=== PATIENT | female | born 1995 | race Two or more races ===

== ENCOUNTER → 2017-07-03 | Outpatient (CLI) | payer OTHER ==
--- NOTE | 2017-07-03 16:53 | US ---
HISTORY: 22-year-old female for age assessment. Study: OB ultrasound greater than 14 weeks Comparison: None. Technique: Multiple grayscale and color flow Doppler images of the pelvis were obtained with focused evaluation of the fetus. Findings: A viable single intrauterine is identified with heart tones of 140 beats per minute. A cephalic presentation is observed with a posterior and fundal placenta. Normal amniotic fluid vol ume is observed. Evaluation of the anatomy including the stomach, kidneys, urinary bladder, and four-chamber heart are unremarkable. The extremities and spine are normal in their sonographic appe arance. A three-vessel cord is observed. No intracranial abnormality can be identified. Value Estimated Gestational Age BPD 6.7 cm 27 weeks 1 day HC 25 cm 27 weeks 0 days AC 23 cm 27 weeks 1 day FL 5.1 cm 27 weeks 3 days Estimated weight 1046 g, 42nd percentile. IMPRESSION: A viable single intrauterine with an average ultrasound age of 27 weeks 1 day correspond to an estimated date of delivery of 10/01/2017. No anatomical abnormalities can be identified. Reported By:
== END ==
LOC: RAD 15:29
PROVIDERS: ATTEND Obstetrics & Gynecology Obstetrics
DX: Z34.92 Encounter for supervision of normal pregnancy, unspecified, second trimester (principal); Z3A.27 27 weeks gestation of pregnancy
CPT/HCPCS: 76805

== ENCOUNTER 2017-09-25 06:21 | Inpatient (IN) ==
[2017-09-25] MEDS ORDERED: LR 1000 ML IV 1,000 ML IV ONE ×2 (06:36→07:16)
[2017-09-25] MEDS ORDERED: ANCEF 1 GRAM IV PREMIX* 1 G/50 ML BAG IV ONE (06:37)
[2017-09-25 07:11] LABS: BASOPHILS % (AUTO) 0.5 % (0.2-1.0); EOSINOPHILS % (AUTO) 0.5 % (0.9-2.9); HEMATOCRIT 39.4 % (36.0-47.0); HEMOGLOBIN 13.6 g/dL (12.0-16.0); LYMPHOCYTES # (AUTO) 2.7 X10^3/uL (1.3-2.9); LYMPHOCYTES % (AUTO) 31.1 % (21.0-51.0); MEAN CORPUSCULAR HEMOGLOBIN 32.9 pg (27.0-34.0); MEAN CORPUSCULAR HGB CONC 34.4 g/dL (33.0-35.0); MEAN CORPUSCULAR VOLUME 95.7 fL (80.0-100.0); MEAN PLATELET VOLUME 9.6 fL (7.4-11.0); MONOCYTES # (AUTO) 0.6 x10^3/uL (0.3-0.8); MONOCYTES % (AUTO) 6.6 % (0.0-13.0); NEUTROPHILS # (AUTO) 5.4 x10^3/uL (2.2-4.8); NEUTROPHILS % (AUTO) 61.3 % (42.0-75.0); PLATELET COUNT 186 X10^3/uL (150.0-450.0); RED BLOOD COUNT 4.12 X10^6/uL (3.5-5.4); RED CELL DISTRIBUTION WIDTH 14.4 % (11.6-16.5); WHITE BLOOD COUNT 8.8 X10^3/uL (3.6-10.0)
[2017-09-25] MEDS ORDERED: D5 1/2 NS 1L W PITOCIN 20 UNITS/L 20 UNITS/1,000 ML BAG IV ONE (07:16)
[2017-09-25] MEDS ORDERED: DURAMORPH ONE (07:16)
[2017-09-25 07:23] LABS: ALANINE AMINOTRANSFERASE 15 Units/L (12-78); ALBUMIN 2.6 g/dL (3.4-5.0); ALKALINE PHOSPHATASE 154 Units/L (46-116); ASPARTATE AMINO TRANSFERASE 13 Units/L (15-37); BLOOD UREA NITROGEN 6 mg/dL (7-18); CALCIUM 8.8 mg/dL (8.5-10.1); CARBON DIOXIDE 21.3 mmol/L (21-32); CHLORIDE 107 mmol/L (98-107); COR CA(FOR HYPOALB) 9.9 mg/dL (8.5-10.1); CREATININE 0.54 mg/dL (0.55-1.02); SODIUM 140 mmol/L (136-145); TOTAL PROTEIN 6.6 g/dL (6.4-8.2); eGFR NON BLACK RACES > 60 (>60)
[2017-09-25] MEDS ORDERED: BENADRYL INJ 50 MG VIAL IVP PRN (08:54)
[2017-09-25] MEDS ORDERED: REGLAN INJ 10 MG VIAL IVP PRN ×2 (08:54→09:12)
[2017-09-25] MEDS ORDERED: PHENERGAN INJ 25 MG IVP PRN (08:54)
[2017-09-25] MEDS ORDERED: ZOFRAN INJ 4 MG VIAL IVP PRN (08:54)
[2017-09-25 08:59] LABS: BILIRUBIN,URINE NEGATIVE (NEGATIVE); BLOOD/HEMOGLOBIN,URINE NEGATIVE (NEGATIVE); GLUCOSE, URINE NEGATIVE (NEGATIVE); KETONES,URINE NEGATIVE (NEGATIVE); LEUKOCYTE ESTERASE ,URINE NEGATIVE (NEGATIVE); NITRITES,URINE NEGATIVE (NEGATIVE); PROTEIN,URINE NEGATIVE (NEGATIVE); UROBILINOGEN,URINE NORMAL (NORMAL)
[2017-09-25 09:02] LABS: APPEARANCE,URINE CLEAR (CLEAR); COLOR,URINE PALE YELLOW (YELLOW)
[2017-09-25] MEDS ORDERED: NARCAN INJ IVP PRN ×2 (09:12)
[2017-09-25] MEDS ORDERED: AMBIEN PO PRN (09:12)
[2017-09-25] MEDS ORDERED: MILK OF MAGNESIA PO PRN (09:12)
[2017-09-25] MEDS ORDERED: TORADOL 30 MG VIAL IVP PRN (09:12)
[2017-09-25] MEDS: BENADRYL INJ 50 MG VIAL IVP PRN (10:04)
[2017-09-25] MEDS: ZOFRAN INJ 4 MG VIAL IVP PRN ×2 (10:04→17:06)
[2017-09-25] MEDS: PRENATAL PLUS PO SCH (11:08)
[2017-09-25] MEDS: ZANTAC PO SCH ×2 (11:08→20:02)
[2017-09-25] MEDS ORDERED: XYLOCAINE 2 % (PLAIN) ONE (15:25)
[2017-09-25] MEDS ORDERED: VERSED ONE (15:25)
[2017-09-25] MEDS ORDERED: ZOFRAN INJ 4 MG VIAL ONE (15:25)
[2017-09-25] MEDS ORDERED: PITOCIN ONE (15:25)
[2017-09-25] MEDS ORDERED: QUELICIN (OR ANECTINE) ONE (15:25)
[2017-09-25] MEDS ORDERED: DIPRIVAN VIAL ONE (15:25)
[2017-09-25] MEDS ORDERED: MARCAINE SPINAL ONE (15:25)
[2017-09-25] MEDS ORDERED: SUPRANE IN ONE (15:25)
[2017-09-25] MEDS: MOTRIN TAB 800 MG PO PRN (19:11)
[2017-09-26 05:34] LABS: HEMATOCRIT 35.1 % (36.0-47.0); HEMOGLOBIN 12.1 g/dL (12.0-16.0)
[2017-09-26] MEDS: PRENATAL PLUS PO SCH (10:00)
[2017-09-26] MEDS: ZANTAC PO SCH ×2 (10:00→20:41)
[2017-09-26] MEDS: BENADRYL INJ 50 MG VIAL IVP PRN (11:45)
[2017-09-26] MEDS: MOTRIN TAB 800 MG PO PRN (14:38)
[2017-09-27] MEDS: PRENATAL PLUS PO SCH (08:45)
[2017-09-27] MEDS: ZANTAC PO SCH (08:45)
[2017-09-27 10:43] VITALS: BP 128/78
== END 2017-09-27 11:50 | disposition home or self-care (01) | DRG 766 ==
LOC: LD 06:21 → MED/SURG 09:02
PROVIDERS: ADMIT Obstetrics & Gynecology Obstetrics; ATTEND Obstetrics & Gynecology Obstetrics
DX: O34.211 Maternal care for low transverse scar from previous cesarean delivery; Z3A.39 39 weeks gestation of pregnancy; O99.52 Diseases of the respiratory system complicating childbirth; Z37.0 Single live birth; N85.8 Other specified noninflammatory disorders of uterus; O09.33 Supervision of pregnancy with insufficient antenatal care, third trimester
CPT/HCPCS: 36415; 74176; 80053; 81003; 85014; 85018; 85025; 86592; 86850; 86900; 86901; 96372; 99283; A4222; S0197; J0330; J0690; J1200; J1885; J2250; J2405; J2590; J2704; J3490; J7120

== ENCOUNTER 2021-10-11 06:41 | Inpatient (IN) ==
[2021-10-11] MEDS ORDERED: ANCEF VIAL 1 GRAM IVP ONE (06:49)
[2021-10-11] MEDS ORDERED: ANCEF VIAL 1 GRAM ONE (06:58)
[2021-10-11] MEDS ORDERED: LR 1,000 ML IV 1,000 ML IV ONE (06:58)
[2021-10-11] MEDS ORDERED: NS 100 ML IV 100 ML ONE (06:59)
[2021-10-11 07:22] LABS: BASOPHILS % (AUTO) 0.3 % (0.2-1.0); EOSINOPHILS % (AUTO) 0.6 % (0.9-2.9); HEMATOCRIT 36.3 % (36.0-47.0); HEMOGLOBIN 12.4 g/dL (12.0-16.0); LYMPHOCYTES # (AUTO) 2.3 X10^3/uL (1.3-2.9); LYMPHOCYTES % (AUTO) 32.3 % (21.0-51.0); MEAN CORPUSCULAR HEMOGLOBIN 29.7 pg (27.0-34.0); MEAN CORPUSCULAR HGB CONC 34.2 g/dL (33.0-35.0); MEAN CORPUSCULAR VOLUME 86.8 fL (80.0-100.0); MEAN PLATELET VOLUME 8.8 fL (7.4-11.0); MONOCYTES # (AUTO) 0.6 x10^3/uL (0.3-0.8); MONOCYTES % (AUTO) 7.8 % (0.0-13.0); NEUTROPHILS # (AUTO) 4.3 x10^3/uL (2.2-4.8); RED BLOOD COUNT 4.18 X10^6/uL (3.5-5.4); RED CELL DISTRIBUTION WIDTH 14.4 % (11.6-16.5); WHITE BLOOD COUNT 7.2 X10^3/uL (3.6-10.0)
[2021-10-11 07:33] LABS: BLOOD UREA NITROGEN 5 mg/dL (7-18); CALCIUM 8.4 mg/dL (8.5-10.1); CHLORIDE 103 mmol/L (98-107); CREATININE 0.58 mg/dL (0.55-1.02); SODIUM 138 mmol/L (136-145); eGFR NON BLACK RACES > 60 (>60)
[2021-10-11] MEDS ORDERED: VERSED ONE (07:36)
[2021-10-11] MEDS ORDERED: PRECEDEX INJ VIAL IVP ONE ×2 (07:36)
[2021-10-11] MEDS ORDERED: DILAUDID INJ ONE (07:36)
[2021-10-11] MEDS ORDERED: MARCAINE SPINAL ONE (07:40)
[2021-10-11] MEDS ORDERED: XYLOCAINE 2 % (PLAIN) ONE (07:42)
[2021-10-11] MEDS ORDERED: PITOCIN ONE (08:24)
[2021-10-11] MEDS ORDERED: TORADOL 30 MG VIAL ONE ×2 (08:38→08:40)
[2021-10-11 08:47] LABS: BILIRUBIN,URINE NEGATIVE (NEGATIVE); BLOOD/HEMOGLOBIN,URINE NEGATIVE (NEGATIVE); GLUCOSE, URINE NEGATIVE (NEGATIVE); KETONES,URINE 3+ (NEGATIVE); LEUKOCYTE ESTERASE ,URINE NEGATIVE (NEGATIVE); NITRITES,URINE NEGATIVE (NEGATIVE); PROTEIN,URINE NEGATIVE (NEGATIVE); UROBILINOGEN,URINE NORMAL (NORMAL)
[2021-10-11 08:51] LABS: APPEARANCE,URINE CLEAR (CLEAR); COLOR,URINE YELLOW (YELLOW)
[2021-10-11] MEDS ORDERED: EPHEDRINE SULFATE INJ ONE (08:56)
[2021-10-11] MEDS ORDERED: ZOFRAN INJ 4 MG VIAL IVP PRN ×2 (09:10→10:13)
[2021-10-11] MEDS ORDERED: DILAUDID INJ IVP PRN (09:10)
[2021-10-11] MEDS ORDERED: BARHEMSYS INJ IVP PRN (09:10)
[2021-10-11] MEDS ORDERED: REGLAN INJ 10 MG VIAL IVP PRN (09:10)
[2021-10-11] MEDS ORDERED: PHENERGAN INJ 25 MG IM PRN (09:10)
[2021-10-11] MEDS ORDERED: BENADRYL INJ 50 MG VIAL IVP PRN (09:10)
[2021-10-11] MEDS ORDERED: MYLICON TAB 80 MG CHEW PO PRN (09:11)
[2021-10-11] MEDS ORDERED: ADACEL or BOOSTRIX TDaP VACCINE IM ONE (09:11)
[2021-10-11] MEDS ORDERED: D5 1/2 NS 1,000 ML 1,000 ML with PITOCIN 20 UNITS IV SCH ×2 (10:00)
[2021-10-11] MEDS ORDERED: MORPHINE SULFATE INJ 4 MG IM PRN (10:10)
[2021-10-11] MEDS ORDERED: MORPHINE SULFATE INJ 4 MG ONE (10:17)
[2021-10-11] MEDS: MOTRIN TAB 800 MG PO PRN (16:40)
[2021-10-11] MEDS: PERCOCET TAB 5/325 MG PO PRN (22:52)
[2021-10-12] MEDS: MOTRIN TAB 800 MG PO PRN ×3 (03:00→21:24)
[2021-10-12 05:23] LABS: HEMATOCRIT 32.2 % (36.0-47.0)
[2021-10-12 05:26] LABS: HEMOGLOBIN 10.8 g/dL (12.0-16.0)
[2021-10-12] MEDS ORDERED: ADACEL or BOOSTRIX TDaP VACCINE IM ONE (09:00)
[2021-10-12] MEDS: PERCOCET TAB 5/325 MG PO PRN (09:56)
[2021-10-12] MEDS: PRENATAL PLUS PO SCH (09:56)
[2021-10-13] MEDS: PERCOCET TAB 5/325 MG PO PRN (03:18)
[2021-10-13] MEDS: PRENATAL PLUS PO SCH (09:24)
[2021-10-13] MEDS ORDERED: ADACEL or BOOSTRIX TDaP VACCINE IM ONE (09:26)
[2021-10-13 10:38] VITALS: BP 121/80
== END 2021-10-13 11:23 | disposition home or self-care (01) | DRG 788 ==
LOC: LD 06:41 → MED/SURG 09:48
PROVIDERS: ADMIT Obstetrics & Gynecology Obstetrics; ATTEND Obstetrics & Gynecology Obstetrics